=== PATIENT | male | born 1945 | race Caucasian/White ===

== ENCOUNTER → 2016-12-26 | Outpatient (CLI) | payer MEDICARE ==
[~2016-12-26] MED LIST: ? ANTIDEPRESSANT PO; ? CHOLESTEROL MED PO; ASPIRIN81 M1 PO; SYNTHROID PO; [UNRECOGNIZED DRUG - REMARK]; [UNRECOGNIZED DRUG - REMARK] PO
[2016-12-26 09:19] LABS: BASO % 0.7 % (0.0-1.0); EOS # 0.1 10*3/uL (0.0-0.4); HEMATOCRIT 44.8 % (42.0-52.0); HEMOGLOBIN 14.9 g/dl (14.0-18.0); LYMPH # 1.9 10*3/uL (1.3-4.4); LYMPH % 30.7 % (27.0-41.0); MEAN CELL VOLUME 84.2 fl (80.0-94.0); MEAN CORPUSCULAR HGB CONC 33.3 g/dl (33.0-37.0); MEAN PLATELET VOLUME 9.8 fl (9.6-12.3); MONO # 0.4 10*3/uL (0.1-1.0); MONO % 7.1 % (3.0-9.0); NEUT # 3.6 10*3/uL (2.3-7.9); NEUT % 59.2 % (47.0-73.0); PLATELET COUNT AUTOMATED 213 10*3/uL (130-400); RED BLOOD COUNT 5.32 10*6/uL (4.50-5.90); WHITE BLOOD COUNT 6.1 10*3/uL (4.8-10.8)
[2016-12-26 09:35] LABS: ALBUMIN 3.4 gm/dl (3.1-4.5); ALKALINE PHOSPHATASE 95 U/L (45-117); BILIRUBIN, DIRECT 0.1 mg/dL (0.0-0.2); BUN 12 mg/dl (7-24); CREATININE 1.15 mg/dL (0.70-1.30); FREE T4 0.85 ng/dl (0.76-1.46); IRON 59 ug/dL (65-175); SGOT/AST 13 IU/L (3-35); SGPT/ALT 16 U/L (12-78); TOTAL IRON BINDING CAPACITY 317 ug/dl (250-450); TOTAL PROTEIN 6.8 gm/dL (6.4-8.2)
[2016-12-26 10:28] LABS: VITAMIN D, 25-HYDROXY 36.8 ng/mL (30-100)
[2016-12-26 10:29] LABS: FERRITIN 32.6 ng/mL (22.0-322.0)
== END | disposition home or self-care (01) ==
LOC: LAB 00:20
PROVIDERS: Internal Medicine
DX: I25.10 Atherosclerotic heart disease of native coronary artery without angina pectoris (principal); I10 Essential (primary) hypertension; L98.8 Other specified disorders of the skin and subcutaneous tissue; E03.8 Other specified hypothyroidism; D50.9 Iron deficiency anemia, unspecified; E55.9 Vitamin D deficiency, unspecified; E78.4 Other hyperlipidemia; R73.02 Impaired glucose tolerance (oral); R53.83 Other fatigue; F41.9 Anxiety disorder, unspecified; Z79.811 Long term (current) use of aromatase inhibitors

== ENCOUNTER → 2017-01-02 | Outpatient (CLI) | payer MEDICARE | END | disposition home or self-care (01) | LOC: RAD 11:27 | DX: E55.9 Vitamin D deficiency, unspecified (principal); R29.890 Loss of height; Z87.891 Personal history of nicotine dependence ==

== ENCOUNTER → 2017-03-12 | Day surgery (SDC) | payer MEDICARE ==
[~2017-03-12] VITALS: Ht 172.7 cm; Wt 85.3 kg
--- NOTE | ~2017-03-12 | O ---
[place], [place] OPERATIVE NOTE [id number] UNIT #: [id number] ROOM: DOCTOR: LEANA LI MD BIRTHDATE: [birth year] DOS: 03/12/2017 PREOPERATIVE DIAGNOSIS: Cataract, right eye. POSTOPERATIVE DIAGNOSIS: Cataract, right eye. OPERATION: Extracapsular cataract extraction by phacoemulsification with posterior chamber intraocular lens implantation, right eye. ANESTHESIA: Monitored standby. OPERATIVE FINDINGS AND PROCEDURE: 2% Xylocaine topical anesthetic gel was applied to the eye in the preop area. The patient was taken to the operating room and prepped and draped in the standard fashion for sterile intraocular surgery. A time out procedure was performed verifying correct patient, correct site and corrects lens with Gildardo Li M.D. The operating microscope was swung into position and the lid speculum was inserted. Using a Izzy paracentesis blade, a paracentesis was made through clear cornea. Viscoelastic was used to fill the anterior chamber. Using a metal keratome a 2.4 mm self-sealing clear corneal cataract incision was made temporally at the limbus. Using a pre-bent 25 gauge cystotome needle, a standard continuous curvilinear capsulorrhexis was performed. The anterior capsule was removed with forceps. The lens nucleus was hydrodissected and phacoemulsified in the posterior chamber. Cortical material was removed with the irrigation aspiration hand piece and the posterior capsule was then polished with a curet under irrigation. The posterior chamber and capsular bag were filled with viscoelastic. A posterior chamber intraocular lens manufactured by: [employer], Model #[id number] and 22.5 diopters in strength were then inserted into the posterior chamber and within the capsular bag using the lens cartridge and injector system. Viscoelastic was removed using the irrigation aspiration handpiece. The anterior chamber was filled with balanced salt solution through the paracentesis. Both the paracentesis site and cataract incisions were hydrated with BSS and verified to be water-tight and self-sealing. Cefuroxime 1 mg/0.1 mL was injected into the anterior chamber through the paracentesis site. The incision checked to be water-tight using a Weck-Danica sponge. The integrity of the cataract wound and ocular tension were checked. Lid speculum and drapes were removed. The patient was transferred from the operating room to the recovery room in satisfactory condition. [place], [place] OPERATIVE NOTE NAME: SARAH LOMAS UNIT #: [id number] ROOM: DOCTOR: LEANA LI MD BIRTHDATE: [birth year] LEANA LI MD CM:OPRECORD:OPERATIVE NOTE [id number] LEANA LI MD 03/12/17 1012 interface
[2017-03-12 10:00] VITALS: BP 152/97
[2017-03-12 10:15] VITALS: BP 152/84
[2017-03-12 10:30] VITALS: BP 147/82
== END | disposition home or self-care (01) ==
LOC: SDC 03-11 11:45
DX: H25.89 Other age-related cataract (principal); I25.10 Atherosclerotic heart disease of native coronary artery without angina pectoris; I10 Essential (primary) hypertension; K21.9 Gastro-esophageal reflux disease without esophagitis; E78.00 Pure hypercholesterolemia, unspecified; Z95.1 Presence of aortocoronary bypass graft; Z82.49 Family history of ischemic heart disease and other diseases of the circulatory system

== ENCOUNTER → 2017-04-02 | Day surgery (SDC) | payer MEDICARE ==
[~2017-04-02] VITALS: Ht 172.7 cm; Wt 87.1 kg
--- NOTE | ~2017-04-02 | O ---
[place], [place] OPERATIVE NOTE NAME: SARAH LOMAS [facility] #: [id number] UNIT #: [id number] ROOM: DOCTOR: LEANA LI MD BIRTHDATE: [birth year] DOS: 04/02/2017 PREOPERATIVE DIAGNOSIS: Cataract, left eye. POSTOPERATIVE DIAGNOSIS: Cataract, left eye. OPERATION: Extracapsular cataract extraction by phacoemulsification with posterior chamber intraocular lens implantation, left eye. ANESTHESIA: Monitored standby. OPERATIVE FINDINGS AND PROCEDURE: 2% Xylocaine topical anesthetic gel was applied to the eye in the preop area. The patient was taken to the operating room and prepped and draped in the standard fashion for sterile intraocular surgery. A time out procedure was performed verifying correct patient, correct site and corrects lens with Gildardo Li M.D. The operating microscope was swung into position and the lid speculum was inserted. Using a Izzy paracentesis blade, a paracentesis was made through clear cornea. Viscoelastic was used to fill the anterior chamber. Using a metal keratome a 2.4 mm self-sealing clear corneal cataract incision was made temporally at the limbus. Using a pre-bent 25 gauge cystotome needle, a standard continuous curvilinear capsulorrhexis was performed. The anterior capsule was removed with forceps. The lens nucleus was hydrodissected and phacoemulsified in the posterior chamber. Cortical material was removed with the irrigation aspiration hand piece and the posterior capsule was then polished with a curet under irrigation. The posterior chamber and capsular bag were filled with viscoelastic. A posterior chamber intraocular lens manufactured by: [employer], Model #[id number], and 21.5 diopters in strength were then inserted into the posterior chamber and within the capsular bag using the lens cartridge and injector system. Viscoelastic was removed using the irrigation aspiration handpiece. The anterior chamber was filled with balanced salt solution through the paracentesis. Both the paracentesis site and cataract incisions were hydrated with BSS and verified to be water-tight and self-sealing. Cefuroxime 1 mg/0.1 mL was injected into the anterior chamber through the paracentesis site. The incision checked to be water-tight using a Weck-Danica sponge. The integrity of the cataract wound and ocular tension were checked. Lid speculum and drapes were removed. The patient was transferred from the operating room to the recovery room in satisfactory condition. [place], [place] OPERATIVE NOTE NAME: SARAH LOAMS UNIT #: [id number] ROOM: DOCTOR: LEANA LI MD BIRTHDATE: [birth year] LEANA LI MD CM:OPRECORD:OPERATIVE NOTE [id number] LEANA LI MD 04/02/17 1457 interface
[2017-04-02 10:35] VITALS: BP 114/69
[2017-04-02 11:43] VITALS: BP 122/71
[2017-04-02 11:58] VITALS: BP 124/74
[2017-04-02 12:13] VITALS: BP 126/71
== END | disposition home or self-care (01) ==
LOC: SDC 03-27 11:00
DX: H26.9 Unspecified cataract (principal); I25.10 Atherosclerotic heart disease of native coronary artery without angina pectoris; I10 Essential (primary) hypertension; K21.9 Gastro-esophageal reflux disease without esophagitis; E78.00 Pure hypercholesterolemia, unspecified; Z95.1 Presence of aortocoronary bypass graft; E03.9 Hypothyroidism, unspecified

== ENCOUNTER → 2017-05-01 | Outpatient (CLI) | payer MEDICARE ==
[2017-05-01 09:58] LABS: FREE T4 0.78 ng/dl (0.76-1.46)
[2017-05-01 10:04] LABS: THYROID STIM HORMONE (HS) 8.37 uIU/ml (0.358-4.75)
== END | disposition home or self-care (01) ==
LOC: LAB 08:51
PROVIDERS: Internal Medicine
DX: E11.9 Type 2 diabetes mellitus without complications (principal); E78.4 Other hyperlipidemia; E03.9 Hypothyroidism, unspecified; E63.8 Other specified nutritional deficiencies; R35.1 Nocturia

== ENCOUNTER 2017-07-12 14:37 | Emergency (ER) | payer MEDICARE ==
[~2017-07-12] VITALS: Ht 172.7 cm; Wt 86.2 kg
--- NOTE | ~2017-07-12 | EKG ---
[place], [place] ELECTROCARDIOGRAM REPORT NAME: SARAH LOMAS UNIT #: [id number] ROOM: DOCTOR: EMBER TATE MD BIRTHDATE: [birth year] DOS: 07/12/2017 TIME: 1440 hours. FINDINGS: 1. Normal sinus rhythm at 70 beats per minute. 2. An acute inferior wall myocardial infarction is present with a probable posterior extension. Reciprocal changes in lead 1 and aVL are noted. 3. An abnormal ECG. 4. No previous tracing is available for comparison. EMBER TATE MD CM:EKGRPT:ELECTROCARDIOGRAM REPORT [id number] EMBER TATE MD
[2017-07-12] MEDS ORDERED: OMEPRAZOLE D/R20 MG PO (14:46)
[2017-07-12] MEDS ORDERED: ATORVASTATIN CA80 M1 PO (14:46)
[2017-07-12] MEDS ORDERED: Synthroid,Levo88 MCG PO (14:47)
[2017-07-12] MEDS ORDERED: CLOPIDOGREL75 MG PO (14:55)
[2017-07-12] MEDS ORDERED: FERROUS SULFAT325 MG PO (14:58)
[2017-07-12] MEDS ORDERED: COQ-10100 MG PO (14:58)
[2017-07-12] MEDS ORDERED: LOPRESSOR25 MG PO (14:59)
[2017-07-12] MEDS ORDERED: VALTREX1000 MG PO (14:59)
[2017-07-12] MEDS ORDERED: VITAMIN B121000 MC1 PO (14:59)
[2017-07-12 15:10] LABS: BASO # 0.1 10*3/uL (0.0-0.1); BASO % 0.9 % (0.0-1.0); EOS # 0.1 10*3/uL (0.0-0.4); EOS % 1.7 % (1.0-4.0); HEMOGLOBIN 15.5 g/dl (14.0-18.0); LYMPH # 2.7 10*3/uL (1.3-4.4); LYMPH % 39.1 % (27.0-41.0); MEAN CORPUSCULAR HGB 31.7 pg (27.0-31.0); MEAN CORPUSCULAR HGB CONC 35.2 g/dl (33.0-37.0); MEAN PLATELET VOLUME 10.4 fl (9.6-12.3); MONO # 0.7 10*3/uL (0.1-1.0); MONO % 10.4 % (3.0-9.0); NEUT # 3.3 10*3/uL (2.3-7.9); NEUT % 47.6 % (47.0-73.0); PLATELET COUNT AUTOMATED 224 10*3/uL (130-400); RED BLOOD COUNT 4.89 10*6/uL (4.50-5.90); RED CELL DISTRI WIDTH 13.2 % (0-14.5); WHITE BLOOD COUNT 6.9 10*3/uL (4.8-10.8)
[2017-07-12 15:15] LABS: ACT PARTIAL THROMBO TIME 24.6 SECONDS (20.8-31.5)
[2017-07-12 15:20] LABS: ALBUMIN 3.8 gm/dl (3.1-4.5); ALKALINE PHOSPHATASE 82 U/L (45-117); BUN 14 mg/dl (7-24); CHLORIDE 110 mmol/L (98-107); CREATININE 1.17 mg/dL (0.70-1.30); POTASSIUM 3.7 mmol/L (3.5-5.1); SGOT/AST 23 IU/L (3-35); SGPT/ALT 27 U/L (12-78); SODIUM 143 mmol/L (136-145)
[2017-07-12 15:23] LABS: TROPONIN I < 0.015 ng/ml (<0.045)
== END 2017-07-12 15:55 | disposition short-term general hospital (02) ==
LOC: ED 14:37
PROVIDERS: Physician Assistant
DX: I24.9 Acute ischemic heart disease, unspecified (principal); I21.19 ST elevation (STEMI) myocardial infarction involving other coronary artery of inferior wall; I10 Essential (primary) hypertension; E78.00 Pure hypercholesterolemia, unspecified; E03.9 Hypothyroidism, unspecified; I25.10 Atherosclerotic heart disease of native coronary artery without angina pectoris; Z95.1 Presence of aortocoronary bypass graft; Z79.899 Other long term (current) drug therapy; Z79.82 Long term (current) use of aspirin; Z79.01 Long term (current) use of anticoagulants

== ENCOUNTER → 2017-10-17 | Outpatient (CLI) | payer MEDICARE ==
[~2017-10-17] MED LIST changes: +ATORVASTATIN CA80 M1 PO; +CLOPIDOGREL75 MG PO; +COQ-10100 MG PO; +FERROUS SULFAT325 MG PO; +LOPRESSOR25 MG PO; +OMEPRAZOLE D/R20 MG PO; +Synthroid,Levo88 MCG PO; +VALTREX1000 MG PO; +VITAMIN B121000 MC1 PO
[2017-10-17 09:27] LABS: ALBUMIN 3.7 gm/dl (3.1-4.5); ALKALINE PHOSPHATASE 83 U/L (45-117); BUN 13 mg/dl (7-24); CHLORIDE 108 mmol/L (98-107); CHOLESTEROL 128 mg/dL (<200); CREATININE 1.17 mg/dL (0.70-1.30); HDL CHOLESTEROL 33 mg/dl (40-60); LDL CHOLESTEROL 73 mg/dL (9-159); POTASSIUM 3.8 mmol/L (3.5-5.1); SGOT/AST 12 IU/L (3-35); SGPT/ALT 20 U/L (12-78); SODIUM 143 mmol/L (136-145); TOTAL PROTEIN 7.2 gm/dL (6.4-8.2); TRIGLYCERIDES 108 mg/dl (<150); VLDL CHOLESTEROL 22 mg/dL (6-40)
[2017-10-17 09:29] LABS: BASO % 0.7 % (0.0-1.0); EOS # 0.1 10*3/uL (0.0-0.4); EOS % 2.5 % (1.0-4.0); HEMATOCRIT 45.9 % (42.0-52.0); HEMOGLOBIN 15.1 g/dl (14.0-18.0); LYMPH # 1.7 10*3/uL (1.3-4.4); LYMPH % 30.7 % (27.0-41.0); MEAN CELL VOLUME 90.7 fl (80.0-94.0); MEAN CORPUSCULAR HGB 29.8 pg (27.0-31.0); MEAN CORPUSCULAR HGB CONC 32.9 g/dl (33.0-37.0); MEAN PLATELET VOLUME 10.4 fl (9.6-12.3); MONO # 0.5 10*3/uL (0.1-1.0); MONO % 9.2 % (3.0-9.0); NEUT # 3.2 10*3/uL (2.3-7.9); NEUT % 56.7 % (47.0-73.0); PLATELET COUNT AUTOMATED 226 10*3/uL (130-400); RED BLOOD COUNT 5.06 10*6/uL (4.50-5.90); RED CELL DISTRI WIDTH 13.4 % (0-14.5); WHITE BLOOD COUNT 5.7 10*3/uL (4.8-10.8)
== END | disposition home or self-care (01) ==
LOC: LAB 08:20
PROVIDERS: Internal Medicine
DX: Z12.5 Encounter for screening for malignant neoplasm of prostate (principal); Z13.9 Encounter for screening, unspecified; I25.10 Atherosclerotic heart disease of native coronary artery without angina pectoris; E78.5 Hyperlipidemia, unspecified; E03.9 Hypothyroidism, unspecified; E64.9 Sequelae of unspecified nutritional deficiency

== ENCOUNTER 2019-10-24 14:53 | Emergency (ER) | payer MEDICARE ==
[~2019-10-24] VITALS: Ht 172.7 cm; Wt 88.5 kg
== END 2019-10-24 18:06 | disposition home or self-care (01) ==
LOC: ED 14:53
DX: S79.911A Unspecified injury of right hip, initial encounter (principal); I25.10 Atherosclerotic heart disease of native coronary artery without angina pectoris; I10 Essential (primary) hypertension; K21.9 Gastro-esophageal reflux disease without esophagitis; I25.2 Old myocardial infarction; Z79.899 Other long term (current) drug therapy; Z79.82 Long term (current) use of aspirin; W10.8XXA Fall (on) (from) other stairs and steps, initial encounter; Y93.89 Activity, other specified; Y92.89 Other specified places as the place of occurrence of the external cause; Y99.8 Other external cause status

== ENCOUNTER → 2019-12-13 | Outpatient (CLI) | payer MEDICARE | END | disposition home or self-care (01) | LOC: MRI 09:34 | PROVIDERS: ATTEND Nurse Practitioner Primary Care | DX: M25.551 Pain in right hip (principal) ==

== ENCOUNTER → 2020-01-24 | Outpatient (CLI) | payer MEDICARE | END | disposition home or self-care (01) | LOC: COVID19 00:53 | PROVIDERS: ATTEND Internal Medicine Gastroenterology | DX: Z20.828 Contact with and (suspected) exposure to other viral communicable diseases (principal) ==

== ENCOUNTER → 2020-01-28 | Day surgery (SDC) | payer MEDICARE ==
[~2020-01-28] VITALS: Ht 172.7 cm; Wt 81.6 kg
[2020-01-28 07:08] VITALS: BP 128/93
[2020-01-28 08:43] VITALS: BP 159/100
[2020-01-28 09:02] VITALS: BP 95/58
[2020-01-28 09:15] VITALS: BP 127/62
== END | disposition home or self-care (01) ==
LOC: SDC 01-24 08:45
PROVIDERS: ATTEND Internal Medicine Gastroenterology
DX: Z12.11 Encounter for screening for malignant neoplasm of colon (principal); D12.2 Benign neoplasm of ascending colon; K64.0 First degree hemorrhoids; K57.30 Diverticulosis of large intestine without perforation or abscess without bleeding; I25.10 Atherosclerotic heart disease of native coronary artery without angina pectoris; E11.9 Type 2 diabetes mellitus without complications; F41.9 Anxiety disorder, unspecified; F32.9 Major depressive disorder, single episode, unspecified; I25.2 Old myocardial infarction; K21.9 Gastro-esophageal reflux disease without esophagitis; Z86.010 Personal history of colon polyps; Z87.891 Personal history of nicotine dependence; Z79.899 Other long term (current) drug therapy; Z82.49 Family history of ischemic heart disease and other diseases of the circulatory system

== ENCOUNTER 2020-08-12 07:17 | Emergency (ER) | payer MEDICARE ==
[~2020-08-12] VITALS: Wt 89.4 kg
[2020-08-12 08:29] LABS: BASO % 0.5 % (0.0-1.0); EOS # 0.1 10*3/uL (0.0-0.4); EOS % 0.9 % (1.0-4.0); HEMATOCRIT 38.1 % (42.0-52.0); LYMPH # 1.7 10*3/uL (1.3-4.4); LYMPH % 21.5 % (27.0-41.0); MEAN CELL VOLUME 84.7 fl (80.0-94.0); MEAN CORPUSCULAR HGB 28.2 pg (27.0-31.0); MEAN CORPUSCULAR HGB CONC 33.3 g/dl (33.0-37.0); MEAN PLATELET VOLUME 10.3 fl (9.6-12.3); MONO # 1.2 10*3/uL (0.1-1.0); MONO % 14.3 % (3.0-9.0); NEUT % 61.7 % (47.0-73.0); PLATELET COUNT AUTOMATED 253 10*3/uL (130-400); RED CELL DISTRI WIDTH 15.3 % (0-14.5)
[2020-08-12 08:48] LABS: BUN 14 mg/dl (7-24); CHLORIDE 105 mmol/L (98-107); CREATININE 1.13 mg/dL (0.70-1.30); POTASSIUM 3.9 mmol/L (3.5-5.1); SODIUM 136 mmol/L (136-145); TROPONIN I 0.024 ng/ml (<0.045)
[2020-08-12] MEDS ORDERED: AVPAK AZITHROM250 MG PO (11:09)
[2020-08-12] MEDS ORDERED: TYLENOL325 M1 PO (11:09)
== END 2020-08-12 11:22 | disposition home or self-care (01) ==
LOC: ED 07:17
PROVIDERS: Emergency Medicine
DX: J18.9 Pneumonia, unspecified organism (principal); R09.1 Pleurisy; Z95.1 Presence of aortocoronary bypass graft; Z79.899 Other long term (current) drug therapy; Z79.82 Long term (current) use of aspirin

== ENCOUNTER 2020-08-23 09:40 | Emergency (ER) | payer MEDICARE ==
[~2020-08-23] VITALS: Wt 83.9 kg
[~2020-08-23 09:40] MED LIST changes: +AVPAK AZITHROM250 MG PO; +TYLENOL325 M1 PO
[2020-08-23 10:39] LABS: HEMATOCRIT 33.4 % (42.0-52.0); MEAN CELL VOLUME 84.3 fl (80.0-94.0); MEAN CORPUSCULAR HGB CONC 33.2 g/dl (33.0-37.0); PLATELET COUNT AUTOMATED 244 10*3/uL (130-400); RED BLOOD COUNT 3.96 10*6/uL (4.50-5.90); RED CELL DISTRI WIDTH 15.4 % (0-14.5); WHITE BLOOD COUNT 6.5 10*3/uL (4.8-10.8)
[2020-08-23 10:56] LABS: ALBUMIN 3.3 gm/dl (3.1-4.5); ALKALINE PHOSPHATASE 96 U/L (45-117); BUN 12 mg/dl (7-24); CHLORIDE 108 mmol/L (98-107); LIPASE 99 U/L (73-393); POTASSIUM 3.8 mmol/L (3.5-5.1); SGOT/AST 11 IU/L (3-35); SGPT/ALT 13 U/L (12-78); SODIUM 138 mmol/L (136-145); TOTAL PROTEIN 7.1 gm/dL (6.4-8.2); TROPONIN I 0.043 ng/ml (<0.045)
[2020-08-23 10:57] LABS: ACT PARTIAL THROMBO TIME 28.7 SECONDS (20.0-32.1); INTERNATIONAL NORM RATIO 1.2 (2.0-3.5)
[2020-08-23 10:59] LABS: BURR CELLS FEW; OVALOCYTES FEW; PLATELET SUFFICIENCY NORMAL (NORMAL); POLYCHROMASIA SLIGHT; TOTAL CELLS COUNTED 100 #CELLS
[2020-08-23 12:59] LABS: BILIRUBIN Negative (Negative); BLOOD Negative (Negative); CLARITY Clear (Clear); COLOR Yellow (Yellow); GLUCOSE Negative (Negative); KETONE Negative (Negative); LEUKO ESTERASE Negative (Negative); NITRITE Negative (Negative); PH 6.5 (4.5-8.0)
[2020-08-23 13:09] LABS: RBC 0-2 rbc/hpf (0-2)
[2020-08-23 13:10] LABS: BACTERIA 1+; MUCOUS 1+
== END 2020-08-23 17:15 | disposition short-term general hospital (02) ==
LOC: ED 09:40
PROVIDERS: Emergency Medicine
DX: R91.8 Other nonspecific abnormal finding of lung field (principal); R10.84 Generalized abdominal pain; R42 Dizziness and giddiness; Z95.1 Presence of aortocoronary bypass graft; Z95.5 Presence of coronary angioplasty implant and graft; Z79.82 Long term (current) use of aspirin; Z79.899 Other long term (current) drug therapy